=== PATIENT | male | born 1980 | race Asian ===

== ENCOUNTER 2016-09-03 19:16 | Emergency (ER) | payer BC, OTHER ==
[~2016-09-03] VITALS: Ht 190.5 cm; Wt 102.1 kg
[~2016-09-03 19:16] MED LIST: AMOX-358 PO; CYCL10TA9 PO; NAPR-243 PO; ONDAN4ODT PO; TRM50T PO
--- OUTSIDE RECORDS SUMMARY | 2016-09-03 19:22 | XMS REPORT ---
Author JAVIER Boateng Organization [employer] Address Unknown Phone Unavailable Care Team Providers Care Prop Attendant Name Role Phone JAVIER BARBA CP Unavailable Allergies No Known Allergies Problems Problem Type Condition Code Onset Dates Condition Status Problem Pain in joint, lower leg 719.46 Active Problem Ingrowing nail 703.0 Active Problem Sprain and strain of unspecified site of knee and leg 844.9 Active Medications No Known Medications Results No Known Results Summary Purpose [employer] Submission
--- NOTE | 2016-09-03 19:40 | ED Fever ---
History of Present Illness General Chief Complaint: Fever-Adult/Adol Stated Complaint: FEVER CHILLS RASH ON LEG Nursing Triage Note: PT TO ED 10 W/ C/O POSS CELLULITIS TO RLE, FEVER ET GENERALIZED BODY ACHES ONSET TODAY. DENIES INJURY Sepsis Screen: No Definite Risk Source: patient, RN notes reviewed Exam Limitations: no limitations History of Present Illness Time seen by provider: 19:40 Initial Comments As above and below. Similar episode once before. Seen here. My have bumped it , not sure. 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 Associated Symptoms: headache muscle aches other (red, warm lower anterior right leg) Allergies and Home Medications Allergies Coded Allergies: No Known Drug Allergies (Unverified , 06/12/10) Home Medications Amoxicillin/Potassium Clav 1 Each Tablet #14 1 EACH PO BID Prescribed by: MARLO NARAYAN on 02/07/161748 Cephalexin 500 Mg Capsule 10Days 1,000 MG PO BID Prescribed by: JAVIER BURNETTE on 09/03/162116 Diclofenac Potassium 50 Mg Tablet #30 50 MG PO Q8H PRN PRN PAIN Prescribed by: JAVIER BURNETTE on 09/03/162116 Constitutional: see HPI fever Musculoskeletal: see HPI other (body aches) Skin: see HPI other (warm, red right lower leg) Psychiatric/Neurological: See HPI Headache Past Fkmcqpv-Egffmx-Javwbh Hx Patient Social History Alcohol Use: Denies Use Recreational Drug Use: No Smoking Status: Never a Smoker Recent Foreign Travel: No Contact w/Someone Who Travel: No Recent Infectious Disease Expo: No Recent Hopitalizations: No Surgeries HX Surgeries: Yes Surgeries: Appendectomy Respiratory Hx Respiratory Disorders: No Cardiovascular Hx Cardiac Disorders: No Neurological Hx Neurological Disorders: No Reproductive System Hx Reproductive Disorders: No Genitourinary Hx Genitourinary Disorders: No Gastrointestinal Hx Gastrointestinal Disorders: No Musculoskeletal Hx Musculoskeletal Disorders: No Endocrine Hx Endocrine Disorders: No HEENT HX ENT Disorders: No Cancer Hx Cancer: No Psychosocial Hx Psychiatric Problems: No Integumentary HX Skin/Integumentary Disorder: No Blood Transfusions Hx Blood Disorders: No Physical Exam Vital Signs Vital Sign - Last 12Hours 09/03/16 19:25 Temp 100.7 Pulse 102 Resp 20 B/P 121/77 Pulse Ox 97 O2 Delivery Room Air Capillary Refill : Less Than 3 Seconds General Appearance: WD/WN no apparent distress Respiratory: no respiratory distress Cardiovascular: tachycardia Extremities: other (right lower anterior leg is red and warm) Neurologic/Psychiatric: alert oriented x 3 Skin: warm/dry other ((+) erythema right lower anterior leg) Progress/Results/Core Measures Results/Orders Lab Results Laboratory Tests Test 09/03/16 20:12 Range/Units Anion Gap 11 5-14 MMOL/L BUN/Creatinine Ratio 16 Band Neutrophils 8 % Basophils # (Auto) 0.0 0.0-0.1 10^3/uL Basophils % (Manual) 0 % Basophils (%) (Auto) 0 0-10 % Blood Morphology Comment NORMAL Blood Urea Nitrogen 18 7-18 MG/DL C-Reactive Protein High Sensitivity 1.51 H 0.00-0.50 MG/DL Calcium Level 8.9 8.5-10.1 MG/DL Carbon Dioxide Level 22 21-32 MMOL/L Chloride Level 102 98-107 MMOL/L Creatinine 1.14 0.60-1.30 MG/DL Eosinophils # (Auto) 0.0 0.0-0.3 10^3/uL Eosinophils % (Manual) 0 % Eosinophils (%) (Auto) 0 0-10 % Estimat Glomerular Filtration Rate > 60 Glucose Level 127 H 70-105 MG/DL Hematocrit 38 L 40-54 % Hemoglobin 13.3 13.3-17.7 G/DL Lactic Acid Level 1.5 0.5-2.0 MMOL/L Lymphocytes # (Auto) 0.5 L 1.0-4.0 X 10^3 Lymphocytes % (Manual) 5 % Lymphocytes (%) (Auto) 3 L 12-44 % Mean Corpuscular Hemoglobin 29 25-34 PG Mean Corpuscular Hemoglobin Concent 35 32-36 G/DL Mean Corpuscular Volume 83 80-99 FL Mean Platelet Volume 9.3 7.4-10.4 FL Monocytes # (Auto) 0.8 0.0-1.0 X 10^3 Monocytes % (Manual) 2 % Monocytes (%) (Auto) 4 0-12 % Neutrophils # (Auto) 16.7 H 1.8-7.8 X 10^3 Neutrophils % (Manual) 85 % Neutrophils (%) (Auto) 93 H 42-75 % Platelet Count 231 130-400 10^3/uL Potassium Level 4.1 3.6-5.0 MMOL/L Red Blood Count 4.58 4.35-5.85 10^6/uL Red Cell Distribution Width 12.4 10.0-14.5 % Sodium Level 135 135-145 MMOL/L White Blood Count 18.0 H 4.3-11.0 10^3/uL My Orders Orders-JAVIER BURNETTE DO Blood Culture (09/03/16 19:51) Basic Metabolic Panel (09/03/16 19:54) Cbc With Automated Diff (09/03/16 19:54) Lactic Acid Analyzer (09/03/16 19:54) Hs C Reactive Protein (09/03/16 20:03) Manual Differential (09/03/16 20:12) Cefazolin Injection (Ancef Injection) (09/03/16 21:13) Water (Sterile) For Injection (Sterile W (09/03/16 21:23) Medications Given in ED Current Medications Medications Dose Ordered Sig/Alba Route Start Time Stop Time Status Last Admin Dose Admin Sterile Water 20 ml STK-MED ONCE .ROUTE 09/03/16 21:23 09/03/16 21:26 DC 09/03/16 21:45 Vital Signs/I&O Vital Sign - Last 12Hours 09/03/16 19:25 Temp 100.7 Pulse 102 Resp 20 B/P 121/77 Pulse Ox 97 O2 Delivery Room Air Blood Pressure Mean: 92 Departure Impression Impression: Primary Impression: Erysipelas of lower extremity Disposition: 01 HOME, SELF-CARE Condition: Stable Departure-Patient Inst. Decision time for Depature: 21:15 Referrals: [facility] (PCP/Family) Primary Care Physician Patient Instructions: Cellulitis and Erysipelas (Skin Infections) Scripts Diclofenac Potassium 50 Mg [id number] Mg PO Q8H PRN PAIN #30 TAB Ref 0 Prov:JAVIER BURNETTE DO 09/03/16 Cephalexin (Keflex)500 Mg Capsule1,000 Mg PO BID 10 Days Ref 0 Prov:JAVIER BURNETTE DO 09/03/16 JAVIER BURNETTE DO Sep 03, 2016 19:40
[2016-09-03 20:31] LABS: BASOPHILS % (AUTO) 0 % (0-10); EOSINOPHILS % (AUTO) 0 % (0-10); LYMPHOCYTES # (AUTO) 0.5 X 10^3 (1.0-4.0); LYMPHOCYTES % (AUTO) 3 % (12-44); MEAN CORPUSCULAR HEMOGLOBIN 29 PG (25-34); MEAN CORPUSCULAR HGB CONC 35 G/DL (32-36); MEAN CORPUSCULAR VOLUME 83 FL (80-99); MEAN PLATELET VOLUME 9.3 FL (7.4-10.4); MONOCYTES # (AUTO) 0.8 X 10^3 (0.0-1.0); MONOCYTES % (AUTO) 4 % (0-12); NEUTROPHILS # (AUTO) 16.7 X 10^3 (1.8-7.8); NEUTROPHILS % (AUTO) 93 % (42-75); PLATELET COUNT 231 10^3/uL (130-400); RED BLOOD COUNT 4.58 10^6/uL (4.35-5.85); RED CELL DISTRIBUTION WIDTH 12.4 % (10.0-14.5)
[2016-09-03 20:49] LABS: BAND NEUTROPHILS 8 %; BASOPHILS % (MANUAL) 0 %; EOSINOPHILS % (MANUAL) 0 %; LYMPHOCYTES % (MANUAL) 5 %; NEUTROPHILS % (MANUAL) 85 %
[2016-09-03 20:50] LABS: ANION GAP 11 MMOL/L (5-14); BLOOD UREA NITROGEN 18 MG/DL (7-18); BUN/CREATININE RATIO 16; CALCIUM 8.9 MG/DL (8.5-10.1); CARBON DIOXIDE 22 MMOL/L (21-32); CHLORIDE 102 MMOL/L (98-107); CREATININE SERUM 1.14 MG/DL (0.60-1.30); GFR ESTIMATED > 60; GLUCOSE 127 MG/DL (70-105); POTASSIUM 4.1 MMOL/L (3.6-5.0); SODIUM 135 MMOL/L (135-145); hs C REACTIVE PROTEIN 1.51 MG/DL (0.00-0.50)
[2016-09-03] MEDS ORDERED: ceFAZolin 1,000 MG (ANCEF) VIAL IM STA (21:13)
[2016-09-03] MEDS ORDERED: CEPH-507 PO (21:17)
[2016-09-03] MEDS ORDERED: DICL50TA4 PO (21:17)
[2016-09-03] MEDS ORDERED: WATER (STERILE) FOR INJECTION 20 ML ONE (21:23)
[2016-09-03] MEDS ORDERED: IBUPROFEN 600 MG (MOTRIN) TAB PO ONE ×2 (22:02→22:15)
[2016-09-03 22:04] VITALS: BP 0/0
== END 2016-09-03 22:04 | disposition home or self-care (01) ==
LOC: EDUNIT# 19:16 → ER 19:20
DX: A46 Erysipelas (principal); R50.9 Fever, unspecified
CPT/HCPCS: 36415; 80048; 83605; 85007; 85027; 86141; 87040; 96372; 99282

== ENCOUNTER 2016-10-31 06:51 | Observation (INO) | payer OTHER ==
[~2016-10-31] VITALS: Ht 190.5 cm; Wt 106.6 kg
[~2016-10-31 06:51] MED LIST changes: +CEPH-507 PO; +DICL50TA4 PO
[2016-10-31 07:49] LABS: BASOPHILS % (AUTO) 0 % (0-10); EOSINOPHILS % (AUTO) 0 % (0-10); LYMPHOCYTES # (AUTO) 0.7 X 10^3 (1.0-4.0); LYMPHOCYTES % (AUTO) 4 % (12-44); MEAN CORPUSCULAR HEMOGLOBIN 29 PG (25-34); MEAN CORPUSCULAR HGB CONC 35 G/DL (32-36); MEAN CORPUSCULAR VOLUME 82 FL (80-99); MEAN PLATELET VOLUME 9.2 FL (7.4-10.4); MONOCYTES # (AUTO) 0.8 X 10^3 (0.0-1.0); MONOCYTES % (AUTO) 5 % (0-12); NEUTROPHILS % (AUTO) 92 % (42-75); PLATELET COUNT 258 10^3/uL (130-400); RED BLOOD COUNT 4.95 10^6/uL (4.35-5.85); RED CELL DISTRIBUTION WIDTH 12.7 % (10.0-14.5); WHITE BLOOD COUNT 17.5 10^3/uL (4.3-11.0)
[2016-10-31 08:06] LABS: ALANINE AMINOTRANSFERASE 89 U/L (0-55); ALBUMIN 4.6 G/DL (3.2-4.5); ANION GAP 13 MMOL/L (5-14); ASPARTATE AMINO TRANSFERASE 44 U/L (5-34); BILIRUBIN,TOTAL 0.4 MG/DL (0.1-1.0); BLOOD UREA NITROGEN 13 MG/DL (7-18); BUN/CREATININE RATIO 12; CALCIUM 9.4 MG/DL (8.5-10.1); CARBON DIOXIDE 21 MMOL/L (21-32); CHLORIDE 103 MMOL/L (98-107); CREATININE SERUM 1.08 MG/DL (0.60-1.30); GFR ESTIMATED > 60; GLUCOSE 128 MG/DL (70-105); POTASSIUM 3.9 MMOL/L (3.6-5.0); SODIUM 137 MMOL/L (135-145); TOTAL PROTEIN 8.1 G/DL (6.4-8.2); hs C REACTIVE PROTEIN 0.58 MG/DL (0.00-0.50)
[2016-10-31 08:11] LABS: LYMPHOCYTES % (MANUAL) 4 %; NEUTROPHILS % (MANUAL) 92 %
[2016-10-31] MEDS ORDERED: NS IV 1000 ML 1,000 ML IV ONE (08:18)
[2016-10-31] MEDS ORDERED: cefTRIAXone INJECTION 1,000 MG in NS (IVPB) 50 ML IV ONE (08:30)
--- NOTE | 2016-10-31 09:07 | ED General ---
General Chief Complaint: Lower Extremity Stated Complaint: REDNESS R LEG CHILLS FEVER Nursing Triage Note: PT STATES RLE REDNESS, HAS HAPPENED 3 TIMES IN THE PAST. PT UNABLE TO STAND LONG PERIODS AND HAS WEAKNESS. Nursing Sepsis Screen: No Definite Risk Source of Information: Patient, Old Records Exam Limitations: No Limitations History of Present Illness Time Seen by Provider: 06:54 Initial Comments This 36 year old gentleman presents to the emergency room with complaints of pain and erythema in the right lower extremity. He reports having 2 prior episodes of cellulitis requiring antibiotic treatment. He has no known predisposing factors such as diabetes. He reports subjective fever at home and he is noted to be tachycardic on assessment. He has been wearing compression stockings in effort to prevent swelling and infection. He reports this is his third episode in 3 months. Allergies and Home Medications Allergies Coded Allergies: No Known Drug Allergies (Unverified , 06/12/10) Home Medications No Active Prescriptions or Reported Meds Constitutional: see HPI EENTM: no symptoms reported Respiratory: no symptoms reported Cardiovascular: see HPI Gastrointestinal: no symptoms reported Genitourinary: no symptoms reported Musculoskeletal: no symptoms reported Skin: see HPI Psychiatric/Neurological: No Symptoms Reported Hematologic/Lymphatic: No Symptoms Reported Immunological/Allergic: see HPI Past Ziaclgo-Habqcz-Bjnmin Hx Patient Social History Alcohol Use: Denies Use Recreational Drug Use: No Smoking Status: Former Smoker Type Used: Cigarettes Recent Foreign Travel: No Contact w/Someone Who Travel: No Recent Infectious Disease Expo: No Recent Hopitalizations: No Seasonal Allergies Seasonal Allergies: No Surgeries HX Surgeries: Yes Surgeries: Appendectomy Respiratory Hx Respiratory Disorders: No Cardiovascular Hx Cardiac Disorders: No Neurological Hx Neurological Disorders: No Reproductive System Hx Reproductive Disorders: No Genitourinary Hx Genitourinary Disorders: No Gastrointestinal Hx Gastrointestinal Disorders: No Musculoskeletal Hx Musculoskeletal Disorders: No Endocrine Hx Endocrine Disorders: No HEENT HX ENT Disorders: No Cancer Hx Cancer: No Psychosocial Hx Psychiatric Problems: No Integumentary HX Skin/Integumentary Disorder: Yes (recurrent cellulitis right lower extremity ) Blood Transfusions Hx Blood Disorders: No Physical Exam Vital Signs Vital Sign - Last 12Hours 10/31/16 07:23 Temp 98.6 Pulse 117 Resp 20 B/P (MAP) 114/88 Pulse Ox 97 O2 Delivery Room Air Capillary Refill : Less Than 3 Seconds General Appearance: No Apparent Distress, WD/WN HEENT: Normal ENT Inspection Neck: Normal Inspection Respiratory: Lungs Clear, Normal Breath Sounds, No Accessory Muscle Use, No Respiratory Distress Cardiovascular: No Edema, No Murmur, Tachycardia (regular rhythm) Gastrointestinal: Non Tender, Soft Extremity: Other (large patch of erythema and heat to the right lower leg. Pedal pulse, motor function, and sensation in the distal extremity intact. 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 Skin: Warm/Dry, Erythema Focused Exam Lactic Acid Level Progress/Results/Core Measures Results/Orders Lab Results Laboratory Tests Test 10/31/16 07:35 10/31/16 09:23 Range/Units White Blood Count 17.5 H 4.3-11.0 10^3/uL Red Blood Count 4.95 4.35-5.85 10^6/uL Hemoglobin 14.1 13.3-17.7 G/DL Hematocrit 41 40-54 % Mean Corpuscular Volume 82 80-99 FL Mean Corpuscular Hemoglobin 29 25-34 PG Mean Corpuscular Hemoglobin Concent 35 32-36 G/DL Red Cell Distribution Width 12.7 10.0-14.5 % Platelet Count 258 130-400 10^3/uL Mean Platelet Volume 9.2 7.4-10.4 FL Neutrophils (%) (Auto) 92 H 42-75 % Lymphocytes (%) (Auto) 4 L 12-44 % Monocytes (%) (Auto) 5 0-12 % Eosinophils (%) (Auto) 0 0-10 % Basophils (%) (Auto) 0 0-10 % Neutrophils # (Auto) 16.0 H 1.8-7.8 X 10^3 Lymphocytes # (Auto) 0.7 L 1.0-4.0 X 10^3 Monocytes # (Auto) 0.8 0.0-1.0 X 10^3 Eosinophils # (Auto) 0.0 0.0-0.3 10^3/uL Basophils # (Auto) 0.0 0.0-0.1 10^3/uL Neutrophils % (Manual) 92 % Lymphocytes % (Manual) 4 % Monocytes % (Manual) 4 % Toxic Granulation 2+ Blood Morphology Comment NORMAL D-Dimer < 0.27 0.00-0.49 UG/ML Sodium Level 137 135-145 MMOL/L Potassium Level 3.9 3.6-5.0 MMOL/L Chloride Level 103 98-107 MMOL/L Carbon Dioxide Level 21 21-32 MMOL/L Anion Gap 13 5-14 MMOL/L Blood Urea Nitrogen 13 7-18 MG/DL Creatinine 1.08 0.60-1.30 MG/DL Estimat Glomerular Filtration Rate > 60 BUN/Creatinine Ratio 12 Glucose Level 128 H 70-105 MG/DL Lactic Acid Level 2.91 *H 2.69 *H 0.50-2.00 MMOL/L Calcium Level 9.4 8.5-10.1 MG/DL Total Bilirubin 0.4 0.1-1.0 MG/DL Aspartate Amino Transf (AST/SGOT) 44 H 5-34 U/L Alanine Aminotransferase (ALT/SGPT) 89 H 0-55 U/L Alkaline Phosphatase 61 40-136 U/L C-Reactive Protein High Sensitivity 0.58 H 0.00-0.50 MG/DL Total Protein 8.1 6.4-8.2 G/DL Albumin 4.6 H 3.2-4.5 G/DL My Orders Orders - SRIDEVI ELDRIDGE MD Cbc With Automated Diff (10/31/16 06:58) Comprehensive Metabolic Panel (10/31/16 06:58) Hs C Reactive Protein (10/31/16 06:58) Lactic Acid Analyzer (10/31/16 06:58) Saline Lock/Iv-Start (10/31/16 06:58) Manual Differential (10/31/16 07:35) Fibrin Degradation Products (10/31/16 08:16) Ceftriaxone Injection (Rocephin Injectio (10/31/16 08:30) Ns Iv 1000 Ml (Sodium Chloride 0.9%) (10/31/16 08:18) Blood Culture (10/31/16 09:10) Medications Given in ED Vital Signs/I&O Vital Sign - Last 12Hours 10/31/16 10/31/16 10/31/16 10/31/16 09:54 10:58 12:00 15:35 Temp 98.2 99.8 100.5 Pulse 97 105 108 Resp 20 20 18 B/P (MAP) 114/71 126/75 Pulse Ox 98 98 98 98 O2 Delivery Room Air Room Air 10/31/16 20:22 Temp 99.6 Pulse 89 Resp 20 B/P (MAP) 127/78 Pulse Ox 97 O2 Delivery Room Air Blood Pressure Mean: 97 Progress Note : Progress Note Patient meets criteria for sepsis. Blood cultures were drawn. Lactic acid is elevated. Rocephin and IV fluids were initiated in the emergency room. Departure Communication Time/Spoke to Admitting Phy: 08:45 Communication Case reviewed with Dr. Bernard who agrees with admission for IV antibiotics and fluids. She agrees with vancomycin and Rocephin. Plan discussed with the patient. Impression Impression: Primary Impression: Sepsis Qualified Codes: A41.9 - Sepsis, unspecified organism Additional Impression: Cellulitis of right leg Disposition: ADMITTED INPATIENT Condition: Improved Decision to Admit Reason: Admit from ER (General) Decision to Admit/Date: Oct 31, 2016 Time/Decision to Admit Time: 08:30 Departure-Patient Inst. Referrals: [facility] (PCP/Family) Primary Care Physician Scripts No Active Prescriptions or Reported Meds SRIDEVI ELDRIDGE MD Oct 31, 2016 09:07
[2016-10-31] MEDS ORDERED: IBUPROFEN 600 MG (MOTRIN) TAB PO PRN (10:30)
[2016-10-31] MEDS ORDERED: ACETAMINOPHEN 500 MG TAB (TYLENOL) PO PRN (10:30)
[2016-10-31] MEDS ORDERED: CATHETER FLUSH 10 ML SYR IV PRN (10:30)
[2016-10-31] MEDS: NS IV 1000 ML 1,000 ML IV SCH ×2 (10:45→18:43)
[2016-10-31] MEDS ORDERED: VANCOMYCIN 2000 MG/NS 500 ML IVPB IV NR ×2 (11:00)
[2016-10-31 12:00] VITALS: BP 114/71
--- NOTE | 2016-10-31 12:45 | History & Physicial (CHS) ---
HPI History of Present Illness: 36 yo M that presented to the ED after a recurring cellulitis in the right lower extremity. States that this is the third time he has had it in his right leg and denies having similar symptoms anywhere else. First episode was last January 2016 that was treated as outpatient and denies any trauma to that leg. Second episode was Aug 2016 that was also treated outpatient but he did come the ER then followed with Dr Brenner. Patient states that he started to notice some redness 2 days ago prior to coming to ER. Last night he woke up with chills and sweats and then decided to come to ER this AM. States that he feels weak but is able to walk. He has pain in his right leg. Denies any other medical history. No recent long travel in plane or car. He does drive up to [place] several times per week. Source: patient, family (), RN/MD Exam Limitations: no limitations Date seen by provider: Oct 31, 2016 Attending Physician Tammy Bernard MD PCP [facility] [place] Date of Admission Oct 31, 2016 at 09:00 Home Medications Home Medications Reviewed patient Home Medication Reconciliation Form Allergies Coded Allergies: No Known Drug Allergies (Unverified , 06/12/10) JUA-Rgrjpz-Mdsmnv Hx Patient Social History Employed/Student: employed ([employer]) Alcohol Use: Denies Use Recreational Drug Use: No Smoking Status: Former Smoker Type Used: Cigarettes Recent Foreign Travel: No Contact w/other who traveled: No Recent Hopitalizations: No Recent Infectious Disease Expo: No Physical Abuse Screen: No Sexual Abuse: No Past Medical History NONE Review of Systems ([facility]) Constitutional: chills, malaise, weakness EENTM: no symptoms reported, No hoarseness, No nose congestion, No throat swelling Respiratory: no symptoms reported, No cough, No dyspnea on exertion, No short of breath Cardiovascular: no symptoms reported, No chest pain, No edema, No palpitations , other (States that he does feel his heart beating fast) Gastrointestinal: no symptoms reported, No abdominal pain, No constipation, No diarrhea, No heartburn, No nausea, No vomiting Genitourinary: no symptoms reported, No dysuria, No frequency, No hematuria Musculoskeletal: joint pain, muscle pain, No muscle cramps, No muscle twitching , No muscle weakness Skin: rash Psychiatric/Neurological: No Symptoms Reported, Denies Anxiety, Denies Depressed Reviewed Test Results Reviewed Test Results Lab Laboratory Tests Test 10/31/16 07:35 10/31/16 09:23 Range/Units White Blood Count 17.5 H 4.3-11.0 10^3/uL Red Blood Count 4.95 4.35-5.85 10^6/uL Hemoglobin 14.1 13.3-17.7 G/DL Hematocrit 41 40-54 % Mean Corpuscular Volume 82 80-99 FL Mean Corpuscular Hemoglobin 29 25-34 PG Mean Corpuscular Hemoglobin Concent 35 32-36 G/DL Red Cell Distribution Width 12.7 10.0-14.5 % Platelet Count 258 130-400 10^3/uL Mean Platelet Volume 9.2 7.4-10.4 FL Neutrophils (%) (Auto) 92 H 42-75 % Lymphocytes (%) (Auto) 4 L 12-44 % Monocytes (%) (Auto) 5 0-12 % Eosinophils (%) (Auto) 0 0-10 % Basophils (%) (Auto) 0 0-10 % Neutrophils # (Auto) 16.0 H 1.8-7.8 X 10^3 Lymphocytes # (Auto) 0.7 L 1.0-4.0 X 10^3 Monocytes # (Auto) 0.8 0.0-1.0 X 10^3 Eosinophils # (Auto) 0.0 0.0-0.3 10^3/uL Basophils # (Auto) 0.0 0.0-0.1 10^3/uL Neutrophils % (Manual) 92 % Lymphocytes % (Manual) 4 % Monocytes % (Manual) 4 % Toxic Granulation 2+ Blood Morphology Comment NORMAL D-Dimer < 0.27 0.00-0.49 UG/ML Sodium Level 137 135-145 MMOL/L Potassium Level 3.9 3.6-5.0 MMOL/L Chloride Level 103 98-107 MMOL/L Carbon Dioxide Level 21 21-32 MMOL/L Anion Gap 13 5-14 MMOL/L Blood Urea Nitrogen 13 7-18 MG/DL Creatinine 1.08 0.60-1.30 MG/DL Estimat Glomerular Filtration Rate > 60 BUN/Creatinine Ratio 12 Glucose Level 128 H 70-105 MG/DL Lactic Acid Level 2.91 *H 2.69 *H 0.50-2.00 MMOL/L Calcium Level 9.4 8.5-10.1 MG/DL Total Bilirubin 0.4 0.1-1.0 MG/DL Aspartate Amino Transf (AST/SGOT) 44 H 5-34 U/L Alanine Aminotransferase (ALT/SGPT) 89 H 0-55 U/L Alkaline Phosphatase 61 40-136 U/L C-Reactive Protein High Sensitivity 0.58 H 0.00-0.50 MG/DL Total Protein 8.1 6.4-8.2 G/DL Albumin 4.6 H 3.2-4.5 G/DL Physical Exam-([facility]) Physical Exam Vital Signs VS - Last 72 Hours, by Label 10/31/16 10/31/16 10/31/16 10/31/16 07:23 09:54 10:58 12:00 Temp 98.6 98.2 99.8 Pulse 117 97 105 Resp 20 20 20 B/P (MAP) 114/88 114/71 Pulse Ox 97 98 98 98 O2 Delivery Room Air Room Air Capillary Refill : Less Than 3 Seconds General Appearance: WD/WN, no apparent distress HEENT: PERRL/EOMI Neck: non-tender, full range of motion, supple, normal inspection Respiratory: chest non-tender, lungs clear, normal breath sounds, no respiratory distress, no accessory muscle use Cardiovascular: normal peripheral pulses, regular rate, rhythm, no JVD, no murmur Gastrointestinal: normal bowel sounds, non tender, soft, no organomegaly Extremities: normal range of motion, no calf tenderness, normal capillary refill, other (erythematous rash on Right LE, irregular border, + ttp, trace swelling R>L) 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, no motor/sensory deficits, alert, normal mood/affect, oriented x 3 Skin: rash (See Above) Lymphatic: no adenopathy Assessment/Plan Assessment/Plan Plan 36 yo M that was admitted for Sepsis likely from right lower Extremity Cellulitis Plan Sepsis with Right lower extremity cellulitis - hemodynamically stable, Patient currently getting IVFs - Day 1 Antibiotics Vanc/Rocephin - Trending Lactic Acid Right lower extremity Cellulitis - Venous doppler pending - See Above Hyperglycemia non diabetic - A1c pending FEN: Reg Diet DVT PPX: Lovenox Dispo: Admit for IV antibiotics Diagnosis/Problems: Copy Copies To 1: HUSEYIN BRENNER HOLLY R MD Oct 31, 2016 12:45
--- NOTE | 2016-10-31 14:54 | Diagnostic Imaging Report ---
EXAMINATION: Right lower extremity duplex venous ultrasound. TECHNIQUE: DVT protocol. Multiple sonographic images with color Doppler and waveform interrogation were performed of the right lower extremity veins with compression and augmentation maneuvers. INDICATION: Right leg pain and swelling. FINDINGS: The right lower extremity veins from the groin to below the knee veins were examined with normal color-flow, compressibility and normal waveform demonstrated. The great saphenous vein is patent. IMPRESSION: No evidence of DVT in the right lower extremity. Dictated by: Dictated on workstation # [id number]
[2016-10-31 15:35] VITALS: BP 126/75
[2016-10-31 20:22] VITALS: BP 127/78
[2016-10-31] MEDS ORDERED: VANCOMYCIN 1500 MG/NS 500 ML IVPB IV SCH ×2 (23:00)
[2016-11-01 00:20] VITALS: BP 127/68
[2016-11-01] MEDS: NS IV 1000 ML 1,000 ML IV SCH ×3 (02:30→17:40)
[2016-11-01 04:00] VITALS: BP 120/75
[2016-11-01 05:45] LABS: BASOPHILS % (AUTO) 0 % (0-10); EOSINOPHILS # (AUTO) 0.1 10^3/uL (0.0-0.3); EOSINOPHILS % (AUTO) 1 % (0-10); LYMPHOCYTES % (AUTO) 12 % (12-44); MEAN CORPUSCULAR HEMOGLOBIN 29 PG (25-34); MEAN CORPUSCULAR HGB CONC 35 G/DL (32-36); MEAN CORPUSCULAR VOLUME 83 FL (80-99); MEAN PLATELET VOLUME 9.5 FL (7.4-10.4); MONOCYTES # (AUTO) 0.5 X 10^3 (0.0-1.0); MONOCYTES % (AUTO) 6 % (0-12); NEUTROPHILS # (AUTO) 7.2 X 10^3 (1.8-7.8); NEUTROPHILS % (AUTO) 82 % (42-75); PLATELET COUNT 208 10^3/uL (130-400); WHITE BLOOD COUNT 8.8 10^3/uL (4.3-11.0)
[2016-11-01 06:25] LABS: ALANINE AMINOTRANSFERASE 71 U/L (0-55); ALBUMIN 3.7 G/DL (3.2-4.5); ANION GAP 8 MMOL/L (5-14); ASPARTATE AMINO TRANSFERASE 30 U/L (5-34); BILIRUBIN,TOTAL 0.7 MG/DL (0.1-1.0); BLOOD UREA NITROGEN 9 MG/DL (7-18); BUN/CREATININE RATIO 11; CALCIUM 8.6 MG/DL (8.5-10.1); CARBON DIOXIDE 22 MMOL/L (21-32); CHLORIDE 109 MMOL/L (98-107); CREATININE SERUM 0.82 MG/DL (0.60-1.30); GFR ESTIMATED > 60; GLUCOSE 99 MG/DL (70-105); POTASSIUM 3.8 MMOL/L (3.6-5.0); SODIUM 139 MMOL/L (135-145); TOTAL PROTEIN 6.3 G/DL (6.4-8.2)
[2016-11-01 08:00] VITALS: BP 114/67
[2016-11-01] MEDS: cefTRIAXone 1 GM/NS 50 ML IVPB IV SCH ×2 (08:15)
[2016-11-01] MEDS ORDERED: TROUGH ORDER-PHARMACY XX ONE (10:00)
--- NOTE | 2016-11-01 11:41 | Progress Note (SOAP) ---
Subjective Subjective/Events-last exam No concerns this AM. States that he had some chills last night. Denies pain. Tolerating PO diet and ambulation. Date seen by provider: Nov 01, 2016 Objective Exam Last Set of Vital Signs Vital Signs Date Time Temp Pulse Resp B/P (MAP) Pulse Ox O2 Delivery O2 Flow Rate FiO2 11/01/16 08:00 99.3 81 20 114/67 98 Room Air Capillary Refill : Less Than 3 Seconds I&O Bad tableGeneral: Alert, Oriented X3, Cooperative, No Acute Distress Lungs: Clear to Auscultation, Normal Air Movement Heart: Regular Rate, No Murmurs Abdomen: Normal Bowel Sounds, Soft, No Tenderness, No Hepatosplenomegaly Extremities: Other (Erythema RLE: improving there is white clearing on inside of outline) Neuro: Normal Gait Results/Procedures Lab Laboratory Tests 11/01/16 04:58: White Blood Count 8.8, Red Blood Count 4.30L, Hemoglobin 12.3L, Hematocrit 36L, Mean Corpuscular Volume 83, Mean Corpuscular Hemoglobin 29, Mean Corpuscular Hemoglobin Concent 35, Red Cell Distribution Width 13.0, Platelet Count 208, Mean Platelet Volume 9.5, Neutrophils (%) (Auto) 82H, Lymphocytes (%) (Auto) 12 , Monocytes (%) (Auto) 6, Eosinophils (%) (Auto) 1, Basophils (%) (Auto) 0, Neutrophils # (Auto) 7.2, Lymphocytes # (Auto) 1.0, Monocytes # (Auto) 0.5, Eosinophils # (Auto) 0.1, Basophils # (Auto) 0.0, Sodium Level 139, Potassium Level 3.8, Chloride Level 109H, Carbon Dioxide Level 22, Anion Gap 8, Blood Urea Nitrogen 9, Creatinine 0.82, Estimat Glomerular Filtration Rate > 60, BUN/ Creatinine Ratio 11, Glucose Level 99, Hemoglobin A1c 5.3, Calcium Level 8.6, Total Bilirubin 0.7, Aspartate Amino Transf (AST/SGOT) 30, Alanine Aminotransferase (ALT/SGPT) 71H, Alkaline Phosphatase 49, Total Protein 6.3L, Albumin 3.7 11/01/16 10:19: Vancomycin Level Trough 7.6L Assessment/Plan Assessment/Plan Plan 36 yo M that was admitted for Sepsis likely from right lower Extremity Cellulitis Plan Sepsis with Right lower extremity cellulitis - hemodynamically stable, Patient currently getting IVFs, decreased IVFs today to 75/hr, patient tolerating PO diet - Day 2 Antibiotics Vanc/Rocephin - Trending Lactic Acid - Blood cultures pending Right lower extremity Cellulitis - Venous doppler: neg for DVT - See Above - May need to consider outpatient Rheumatology workup FEN: Reg Diet DVT PPX: Lovenox Dispo: Admit for IV antibiotics, Will d/c after cultures are back Diagnosis/Problems: Clinical Quality Measures DVT/VTE Risk/Contraindication: Risk Factor Score Per Nursin RFS Level Per Nursing on Admit: 1=Low/No VTE PPX SILVINO MONTANA MD Nov 01, 2016 11:41
[2016-11-01] MEDS: VANCOMYCIN 1500 MG/NS 500 ML IVPB IV SCH ×4 (11:53→18:51)
[2016-11-01 12:00] VITALS: BP 129/73
[2016-11-01 16:20] VITALS: BP 125/80
[2016-11-01 20:00] VITALS: BP 130/81
[2016-11-02 00:45] VITALS: BP 119/74
[2016-11-02] MEDS: VANCOMYCIN 1500 MG/NS 500 ML IVPB IV SCH ×2 (03:16)
[2016-11-02 04:57] VITALS: BP 114/68
[2016-11-02 05:41] LABS: BASOPHILS % (AUTO) 0 % (0-10); EOSINOPHILS # (AUTO) 0.2 10^3/uL (0.0-0.3); EOSINOPHILS % (AUTO) 5 % (0-10); LYMPHOCYTES # (AUTO) 1.7 X 10^3 (1.0-4.0); LYMPHOCYTES % (AUTO) 34 % (12-44); MEAN CORPUSCULAR HEMOGLOBIN 29 PG (25-34); MEAN CORPUSCULAR HGB CONC 34 G/DL (32-36); MEAN CORPUSCULAR VOLUME 84 FL (80-99); MEAN PLATELET VOLUME 9.2 FL (7.4-10.4); MONOCYTES # (AUTO) 0.6 X 10^3 (0.0-1.0); MONOCYTES % (AUTO) 12 % (0-12); NEUTROPHILS # (AUTO) 2.5 X 10^3 (1.8-7.8); NEUTROPHILS % (AUTO) 49 % (42-75); PLATELET COUNT 212 10^3/uL (130-400); RED BLOOD COUNT 4.02 10^6/uL (4.35-5.85); RED CELL DISTRIBUTION WIDTH 12.9 % (10.0-14.5); WHITE BLOOD COUNT 5.1 10^3/uL (4.3-11.0)
[2016-11-02 06:04] LABS: ALANINE AMINOTRANSFERASE 66 U/L (0-55); ALBUMIN 3.7 G/DL (3.2-4.5); ANION GAP 10 MMOL/L (5-14); ASPARTATE AMINO TRANSFERASE 29 U/L (5-34); BILIRUBIN,TOTAL 0.5 MG/DL (0.1-1.0); BLOOD UREA NITROGEN 12 MG/DL (7-18); BUN/CREATININE RATIO 13; CALCIUM 8.7 MG/DL (8.5-10.1); CARBON DIOXIDE 22 MMOL/L (21-32); CHLORIDE 110 MMOL/L (98-107); GFR ESTIMATED > 60; GLUCOSE 103 MG/DL (70-105); POTASSIUM 3.9 MMOL/L (3.6-5.0); SODIUM 142 MMOL/L (135-145); TOTAL PROTEIN 6.5 G/DL (6.4-8.2)
[2016-11-02 08:00] VITALS: BP 126/80
[2016-11-02] MEDS: cefTRIAXone 1 GM/NS 50 ML IVPB IV SCH ×2 (09:10)
[2016-11-02] MEDS ORDERED: TROUGH ORDER-PHARMACY XX NR (10:00)
[2016-11-02] MEDS ORDERED: CLIN150C17 PO (10:47)
--- NOTE | 2016-11-02 10:51 | Discharge Instructions ---
Discharge [facility] Discharge Medications New, Converted or Re-Newed RX: Transmitted to Pharmacy New Medications: Clindamycin HCl (Clindamycin HCl) 150 Mg Capsule 300 MG PO Q6HR for 8 Days, #32 CAP Patient Instructions Goal/Follow Up Appt: Discharge nurse will call and get appt with Dr Brenner You will need to talk to your PCP Dr Brenner regarding which Hotel Superintendent you would like to be referred to Patient Instructions: - Make sure to stay well hydrated - Make sure to complete your antibioitics - Wear compression stockings when you are going to be up on your feet Return to The Hospital For: - Increasing pain or redness - Unable to tolerate antibioitics Activity & Diet Discharge Diet: No Restrictions Activity as Tolerated: Yes Copy Copies To 1: HUSEYIN BRENNER HOLLY R MD Nov 02, 2016 10:51
--- NOTE | 2016-11-02 10:57 | Discharge Summary ---
Diagnosis/Chief Complaint Date of Admission Oct 31, 2016 at 10:55 Date of Discharge 11/02/16 Admission Diagnosis Admission Diagnosis Sepsis Right lower extremity cellulitis Elevated Liver Enzymes Discharge Diagnosis See above Chief Complaint/HPI Chief Complaint/HPI 36 yo M that presented to the ED after a recurring cellulitis in the right lower extremity. States that this is the third time he has had it in his right leg and denies having similar symptoms anywhere else. First episode was last January 2016 that was treated as outpatient and denies any trauma to that leg. Second episode was Aug 2016 that was also treated outpatient but he did come the ER then followed with Dr Ch. Patient states that he started to notice some redness 2 days ago prior to coming to ER. Last night he woke up with chills and sweats and then decided to come to ER this AM. States that he feels weak but is able to walk. He has pain in his right leg. Denies any other medical history. No recent long travel in plane or car. He does drive up to [place] several times per week. Discharge Summary-Simple/Stand Procedures RLE Doppler: Neg for DVT Consultations Discharge Physical Examination Allergies: Coded Allergies: No Known Drug Allergies (Unverified , 06/12/10) Vitals & I&Os Vital Sign - Last 12Hours Date Time Temp Pulse Resp B/P (MAP) Pulse Ox O2 Delivery O2 Flow Rate FiO2 11/02/16 08:00 97.1 65 16 126/80 98 Room Air Intake and Output 11/02/16 00:00 Intake Total 2320 ml Output Total 3600 ml Balance -1280 ml General Appearance: Alert, Oriented X3, Cooperative, No Acute Distress HEENT: Atraumatic, EOMI, Mucous Memb Moist/[place] Respiratory: Clear to Auscultation, Normal Air Movement Cardiovascular: Regular Rate, Normal S1, Normal S2, No Murmurs Abdominal: Normal Bowel Sounds, Soft, No Tenderness, No Hepatosplenomegaly, No Masses Extremities: Other (1+ swelling in RLE, Erythema much improved) Skin: Other (erythema RLE) Neuro: Normal Gait, Normal Speech, Strength at 5/5 X4 Ext, Sensation Intact, Cranial Nerves 3-12 NL Psych/Mental Status: Mental Status NL, Mood NL Hospital Course See final discharge diagnosis. Pending Labs None pending Discussion & Recommendations 36 yo M with 3rd recurrence of cellulitis on RLE that met Sepsis Criteria. Patient had neg Doppler US. Erythema and pain improved wit IV antibiotics. Blood cultures neg. Patient requesting Rheumatology referral to figure out underlying cause. Elevated glucose with recurring infection. Screened for DM and A1c 5.3 during this hospitalization. Elevated LFTs improved with hydration and treatment of sepsis. Patient stated at time of discharge that he had previous partner that was + for hepatitis and he has not been screened. Encourage patient to discuss with PCP and get outpatient screening. Discharge Condition at discharge Stable Instructions to patient/family Please see electonic discharge instructions given to patient. Discharge Medications Reviewed and agree with Discharge Medication list on patient's Discharge Instruction sheet Clinical Quality Measures DVT/VTE Risk/Contraindication: Risk Factor Score Per Nursin RFS Level Per Nursing on Admit: 1=Low/No VTE PPX Copy Copies To 1: SILVINO MONTANA MD; HUSEYIN CH HOLLY R MD Nov 02, 2016 10:57
[2016-11-02 11:42] VITALS: BP 126/80
[2016-11-02] MEDS ORDERED: CLINDAMYCIN 150 MG (CLEOCIN) CAP PO SCH (12:00)
== END 2016-11-02 10:47 | disposition home or self-care (01) ==
LOC: EDUNIT# 06:51 → ER 06:54 → 4TH 09:00 → UNDOADMOB 09:00 → 4TH 10:55
PROVIDERS: ADMIT Family Medicine; ATTEND Family Medicine
DX: A41.9 Sepsis, unspecified organism (principal); L03.115 Cellulitis of right lower limb; R73.9 Hyperglycemia, unspecified; R74.8 Abnormal levels of other serum enzymes
CPT/HCPCS: 36415; 80053; 80202; 83036; 83605; 85007; 85025; 85027; 85379; 86141; 87040; 96361; 96365; G0378

== ENCOUNTER → 2016-11-21 | Outpatient (CLI) | payer OTHER ==
[~2016-11-21] MED LIST changes: +CLIN150C17 PO
--- NOTE | 2016-11-23 06:59 | ECHOCARDIOGRAPHY REPORT ---
DATE OF SERVICE: 11/21/2016 2D ECHOCARDIOGRAM REFERRING PHYSICIAN: [facility]. MEASUREMENT: LVID end diastolic 4.8. IVS thickness 1.1. LVPW thickness 1.1. Left atrial diameter of 3.1. Ejection fraction 60%. FINDINGS: 1. Technical quality is good. 2. The left ventricle is normal in size with normal contractility, systolic function appeared to be normal, estimated ejection fraction 60%. 3. The left atrium is normal in size. No clot or thrombus were seen within the left atrium. 4. The right atrium and right ventricle are normal in size. No clot or thrombus were seen within the right side. 5. Mitral valve is normal in morphology with mild mitral regurgitation noted by color Doppler flow. No mitral valve prolapse. No mitral valve stenosis. 6. Aortic valve is trileaflet with normal opening and closing pattern. No significant aortic stenosis or regurgitation was seen. 7. Tricuspid valve is normal in morphology with mild tricuspid regurgitation noted by color Doppler flow. Doppler across the tricuspid valve estimated pulmonary artery pressure of 6+ right atrial pressure. 8. Pulmonic valve is functioning normally. 9. No pericardial effusion. CONCLUSION: 1. Normal left ventricular size and systolic function, estimated ejection fraction 60%. 2. Mild mitral and tricuspid regurgitation. 3. Estimated pulmonary artery pressure of 10 mmHg. Job ID: [id number] DocumentID: [id number] Dictated Date: 11/22/2016 15:16:33 [employer] Research Ecologist Date: 11/22/2016 21:44:44 Dictated By: MILTON PASCUAL MD
== END ==
LOC: CARD 15:07
PROVIDERS: ATTEND Family Medicine
DX: R60.9 Edema, unspecified (principal); L03.90 Cellulitis, unspecified
CPT/HCPCS: 93306

== ENCOUNTER 2018-12-31 10:41 | Outpatient (RCR) | payer OTHER | END 2019-03-31 | disposition home or self-care (01) | LOC: LAB 10:41 | PROVIDERS: ATTEND Urology | DX: N46.9 Male infertility, unspecified (principal) | CPT/HCPCS: 89320 ==

== ENCOUNTER 2019-06-19 06:19 | Outpatient (CLI) | payer OTHER ==
[~2019-06-19] VITALS: Ht 193 cm; Wt 104.5 kg
[2019-06-19] MEDS ORDERED: OMEP20TA33 PO (14:50)
== END 2019-06-19 14:59 ==
LOC: PREOP 06:19
PROVIDERS: ATTEND Surgery
DX: Z01.818 Encounter for other preprocedural examination (principal)

== ENCOUNTER 2019-06-26 09:36 | Day surgery (SDC) | payer OTHER ==
--- NOTE | 2019-06-17 12:15 | HISTORY AND PHYSICAL ---
DATE OF SERVICE: 06/26/2019 DATE OF PROCEDURE: 06/26/2019. REFERRING PHYSICIAN: Amie Brenner DO HISTORY OF PRESENT ILLNESS: The patient is a 39-year-old male who is referred over to us for worsening episodes of heartburn, reflux as well as episodes of bright red blood per rectum. The patient reports that he has had issues with heartburn and reflux for years and has taken Prilosec before in the past, which has helped and then has stopped the medication with no issues until here recently. He reports that approximately 3 months ago he did have worsening episodes of heartburn and reflux as well as nausea. He reports that he would also have intermittent episodes of rectal itching and discomfort and would occasionally get bright red episodes of blood upon wiping as well as occasionally in his stool. He does report that at times he does get some diarrhea, but is not frequent and denies any constipation. He denies any immediate family members with any history of colon cancer; however, did report that his paternal uncle was just recently diagnosed with colon cancer at the age of 63. Upon further questioning, he does report occasional episodes of lower abdominal pain that is usually around the umbilicus. He reports that he has noticed that acidic types of foods such as oranges as well as caffeine and spicy foods do seem to make his reflux worse. He denies any issues at night. He reports that he did recently restart the Prilosec, which he reports has helped some. 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 PAST MEDICAL HISTORY: Cellulitis of the bilateral lower extremities as well as sepsis from one of these episodes. Gastroesophageal reflux disease. PAST SURGICAL HISTORY: Appendectomy in 2003. ALLERGIES: No known drug allergies. MEDICATIONS: Prilosec daily. SOCIAL HISTORY: Previous history of smoking 2 packs per day for 2 years, quit in 2005. Negative for alcohol. FAMILY HISTORY: Mother had gastroesophageal reflux disease. Father had peptic ulcer disease, gastroesophageal reflux disease. Paternal uncle with colon cancer diagnosed at 63 years of age. REVIEW OF SYSTEMS: Well-nourished male, in no acute distress. He is not experiencing any shortness of breath or difficulty breathing. No chest pain, palpitations or diaphoresis. He does report occasional episodes of nausea, but no vomiting. He does report epigastric burning and discomfort as well as heartburn and reflux. He also reports pain and discomfort of the umbilical area, which he reports has been going on for several months. He also reports occasional episodes of diarrhea, but no constipation. He does report occasional episodes of bright red blood per rectum, but no dark tarry stools. No fever or chills. No recent inadvertent weight loss. All other review of systems are negative. PHYSICAL EXAMINATION: VITAL SIGNS: Blood pressure is 132/80. Current weight is 247.1. Height is 6 feet 4 inches. CHEST: Clear. Good breath sounds bilaterally. HEART: Regular, no murmurs. EXTREMITIES: No lower extremity edema. Negative Homans sign. HEENT: No scleral icterus. NECK: No cervical lymphadenopathy. ABDOMEN: Soft, nondistended. With the patient performing Valsalva maneuver, there is tenderness at the umbilical area and there does appear to be a slight bulge, does appear to be consistent with an umbilical hernia; however, is reducible. This is a small, but is painful upon palpation. There are no palpable masses. No organomegaly. SKIN: Warm, dry and pink. NEUROLOGIC: Awake, alert and oriented x3. ASSESSMENT AND PLAN: A 39-year-old male with symptomatic gastroesophageal reflux disease, nausea as well as episodes of bright red blood per rectum and diarrhea. He also has a symptomatic umbilical hernia; however is reducible. The risks and benefits of the procedure as well as the procedure and home care instructions were explained to the patient. The patient verbalized understanding of instructions and agrees to proceed as planned. At this time, he would like to proceed with just EGD and colonoscopy. Once he has time or he is available to proceed with surgical intervention for repair of the hernia, he will let us know and then we can proceed with the umbilical hernia repair with mesh. It was also explained to the patient about the risk of incarceration and strangulation. We will at this time proceed with scheduling him for the EGD and colonoscopy. Job ID: [id number] DocumentID: [id number] Dictated Date: 06/12/2019 19:24:13 Transportation Superintendent Date: 06/12/2019 20:19:27 Dictated By: MARTIN THOMPSON APRN
[2019-06-26] VITALS (19 sets, daily range): BP systolic 102–144; BP diastolic 61–94
[~2019-06-26] VITALS: Ht 193 cm; Wt 104.5 kg
[~2019-06-26 09:36] MED LIST changes: +OMEP20TA33 PO
[2019-06-26] MEDS ORDERED: NS IV 500 ML 500 ML ONE (09:42)
[2019-06-26] MEDS ORDERED: HURRICAINE EXT TUBE (BENZOCAINE) XX PRN (09:45)
[2019-06-26] MEDS ORDERED: NS IV 500 ML 500 ML IV PRN (09:45)
[2019-06-26] MEDS ORDERED: LIDOCAINE JELLY 2% 6 ML SYRINGE MM PRN (09:45)
[2019-06-26] MEDS ORDERED: fentaNYL INJECTION 100 MCG/2 ML AMP IVP ONE (09:45)
--- NOTE | 2019-06-26 10:12 | Progress Note-Pre Operative ---
Pre-Operative Progress Note H&P Reviewed The H&P was reviewed, patient examined and no changes noted. Date Seen by Provider: Jun 26, 2019 Time Seen by Provider: 10:00 Date H&P Reviewed: Jun 26, 2019 Time H&P Reviewed: 10:00 Pre-Operative Diagnosis: GERD, rectal bleed KRISTINA MORGAN MD Jun 26, 2019 10:12
[2019-06-26] MEDS ORDERED: PANT40TA2 PO (10:14)
--- NOTE | 2019-06-26 10:14 | Conscious Sedation/ASA ---
Conscious Sedation Pre-Proced Time 10:00 ASA Score 1 For ASA 3 and 4: Consider anesthesia and medical clearance. Also, for patients with a history of failed moderate sedation consider anesthesia. Airway Lungs Heart ASA score ASA 1: a normal healthy patient ASA 2: a patient with a mild systemic disease (mid diabetes, controlled hypertension, obesity ASA 3: a patient with a severe systemic disease that limits activity (angina, COPD, prior Myocardial infarction) ASA 4: a patient with an incapacitating disease that is a constant threat to life (CHF, renal failure) ASA 5: a moribund patient not expected to survive 24 hrs. (ruptured aneurysm) ASA 6: a declared brain- patient whose organs are being harvested. For emergent operations, add the letter E after the classification Mallampati Classification Grade 2 Sedation Plan Analgesia, Amnesia, Plan communicated to team members, Discussed options with patient/fam, Discussed risks with patient/fam The patient is an appropriate candidate to undergo the planned procedure, sedation, and anesthesia. The patient immediately re-assessed prior to indication. KRISTINA MORGAN MD Jun 26, 2019 10:13
[2019-06-26] MEDS ORDERED: ACETAMINOPHEN 325 MG TABLET PO PRN (10:15)
[2019-06-26] MEDS ORDERED: morphine INJ 10 MG/ML 1ML (SYR OR VIAL) IVP PRN ×2 (10:15)
[2019-06-26] MEDS ORDERED: HYDROcodone/APAP 5 MG/325 MG (LORTAB) TAB PO PRN (10:15)
[2019-06-26] MEDS ORDERED: ONDANSETRON 4 MG/2 ML (SDV) Z0FRAN IVP PRN (10:15)
--- NOTE | 2019-06-26 10:15 | Discharge Inst-Surgical ---
D/C Lap Instructions-CATHY New, Converted, or Re-Newed RX: RX on Chart Follow Up Activity as tolerated High Fiber Diet 25g or more per day Avoid Alcohol, Caffeine, Spicy [place] and Acid foods. Drink 64 fluid oz or more of fluids per day. Symptoms to Report: Fever over 101 degree F, Nausea/Vomiting If any problems/questions: Contact your physician or go to Emergency Room KRISTINA MORGAN MD Jun 26, 2019 10:15
[2019-06-26] MEDS ORDERED: MIDAZOLAM 5 MG/5 ML (VERSED) VIAL ONE ×3 (10:26→11:41)
[2019-06-26] MEDS ORDERED: LIDOCAINE JELLY 2% 6 ML SYRINGE ONE (10:26)
[2019-06-26] MEDS ORDERED: HURRICAINE EXT TUBE (BENZOCAINE) ONE (10:26)
[2019-06-26] MEDS ORDERED: fentaNYL INJECTION 100 MCG/2 ML AMP ONE ×2 (10:26)
[2019-06-26] MEDS: MIDAZOLAM 5 MG/5 ML (VERSED) VIAL IV PRN ×7 (11:20→11:46)
--- NOTE | 2019-06-26 13:09 | Progress Note-Post Operative ---
Post-Operative Progess Note Surgeon (s)/Quarry Worker (s) Surgeon KRISTINA MORGAN MD Quarry Worker: none Pre-Operative Diagnosis GERD, rectal bleed Post-Operative Diagnosis reflux esophagitis(stage 2), small HH(2cm), mild-moderate gastritis. mild chronic stage 2 ext and int hemorrhoids, mild sigmoid diverticulosis. Procedure & Operative Findings Date of Procedure 06/26/19 Procedure Performed/Findings EGD with bx. Colonoscopy. Anesthesia Type cs Estimated Blood Loss Estimated blood loss (mL): minimal Specimens/Packing Specimens Removed ge jxn, antrum KRISTINA MORGAN MD Jun 26, 2019 13:09
--- NOTE | 2019-06-26 21:28 | OPERATIVE REPORT ---
DATE OF SERVICE: 06/26/2019 ATTENDING PRIMARY CARE PHYSICIAN: Amie Brenner DO PREOPERATIVE DIAGNOSES: Gastroesophageal reflux disease, rectal bleeding, abdominal pain. POSTOPERATIVE DIAGNOSES: Reflux esophagitis stage II, small hiatal hernia approximately 2 cm in size, mild to moderate gastritis, chronic stage II external and internal hemorrhoids, mild sigmoid diverticulosis. PROCEDURE: EGD with biopsy, colonoscopy. SURGEON: Kristina Morgan MD. ANESTHESIA: Conscious sedation. ESTIMATED BLOOD LOSS: Minimal. FINDINGS: Reflux esophagitis stage II, small hiatal hernia approximately 2 cm in size, mild to moderate gastritis, chronic stage II external and internal hemorrhoids, mild sigmoid diverticulosis. DISPOSITION: The patient tolerated the procedure well. INDICATIONS: The patient is a 39-year-old male with history of gastroesophageal reflux disease; however, he has noticed this has worsened in the past few years. He has been taking Prilosec for the past few years and states that this has become ineffective. He also does report that he does have small amounts of blood per rectum as well as crampy lower abdominal pain on occasion. He does not have any first-degree relatives with history of colon cancer; however, he does report that his maternal uncle was diagnosed with colon cancer at age 63. DESCRIPTION OF PROCEDURE: The patient was brought to the endoscopy suite, laid in the left lateral decubitus position. After adequate IV pain and sedative medications and conscious sedation anesthesia, the mouthpiece was applied. The endoscope was placed in the mouth, visualizing the pharynx and hypopharyngeal region. Vocal cords, epiglottis and vallecula identified and appeared to be normal. The endoscope was gently intubated. Esophageal opening and esophagus insufflated. The endoscope was then advanced to the first, second and third portion of the esophagus at the level of GE junction, a reflux esophagitis stage II identified. There were no ulcers or strictures identified in this region. A biopsy was taken with forceps with visualization of good hemostasis. The endoscope was then advanced into the stomach and endoscope retroflexed, visualizing a small hiatal hernia approximately 2 cm in size. There was a mild to moderate gastritis. No formal ulcerations, polyps, or any neoplasms. A biopsy was taken of the antrum to rule out H. pylori with visualization of good hemostasis. The endoscope was then advanced to the pylorus and the first and second portion of the duodenum, which appeared normal with no distal obstructions. The endoscope was then slowly withdrawn while taking a second look and suctioning of residual air with no additional findings. Under the same anesthesia, we then proceeded with the colonoscopy portion of the procedure. A digital rectal examination was performed, which revealed chronic stage II external and internal hemorrhoids, not actively edematous nor inflamed and no bleeding. Normal sphincter tone was felt and there were no palpable masses. Prostate gland was palpable and appeared to be normal. The endoscope was then intubated and anus and rectum gently insufflated. The endoscope was then advanced to the valves of [place] of the rectum with no polyps or any neoplasms identified. We then proceeded through the sigmoid colon where mild sigmoid diverticulosis identified. The endoscope was then advanced to the remainder of the descending, transverse and ascending colon to the cecum. These segments were normal. There were no polyps or any neoplasms identified as well as no mucosal inflammatory changes to indicate any inflammatory bowel disease. The endoscope was then slowly withdrawn while taking a second look and suctioning of residual air with no additional findings. The patient tolerated the procedure well. We will recommend the necessary lifestyle and diet accommodation for reflux esophagitis as well as a hiatal hernia including small and more frequent meals, avoidance of eating at night as well as head elevation while lying supine. He also needs to avoid caffeinated beverages, spicy, greasy and acidic foods. We also recommend a high fiber diet with supplemental 30 grams of fiber daily and significant amounts of water to promote soft stools on a daily basis. During the colonoscopy, he did have no anatomic abnormalities; however, did have a significant amount of discomfort, most likely indicating some level of irritable bowel syndrome. Job ID: [id number] DocumentID: [id number] Dictated Date: 06/26/2019 12:07:[address] Date: 06/26/2019 21:27:48 Dictated By: KRISTINA MORGAN MD
== END 2019-06-26 13:10 | disposition home or self-care (01) ==
LOC: ENDO 09:36
PROVIDERS: ATTEND Surgery
DX: K57.30 Diverticulosis of large intestine without perforation or abscess without bleeding (principal); K64.8 Other hemorrhoids; K64.1 Second degree hemorrhoids; K21.0 Gastro-esophageal reflux disease with esophagitis; K44.9 Diaphragmatic hernia without obstruction or gangrene; K29.30 Chronic superficial gastritis without bleeding; Z80.0 Family history of malignant neoplasm of digestive organs; Z90.79 Acquired absence of other genital organ(s); Z87.891 Personal history of nicotine dependence; Z83.79 Family history of other diseases of the digestive system
CPT/HCPCS: 88305